=== PATIENT | female | born 1995 | race Caucasian/White ===

== ENCOUNTER 2022-08-17 12:44 | Outpatient (CLI) | payer BC, SELFPAY ==
--- NOTE | 2022-08-17 13:00 | CRLHL7_ITS ---
For Patients: As a result of the Century Cures Act, medical imaging exams and procedure reports are released immediately into your electronic medical record. You may view this report before your referring provider. If you have questions, please contact your health care provider. Indication: Sinusitis Technique: Performed without IV contrast Comparison: None available Findings: Frontal sinuses: Clear. Ethmoid sinuses: Clear. Maxillary sinuses: A tiny mucous retention cyst is present on the right measuring 3 millimeters. Clear left maxillary sinus. The maxillary sinus drainage pathways are patent on both sides. Sphenoid sinuses: Clear, including both sphenoethmoidal recesses. Nasal Cavity: Slight leftward deviation of the nasal septum. No nasal polyps. Normal turbinate mucosa. No TMJ abnormalities identified. The visualized portions of the orbits, intracranial contents and upper soft tissue neck are grossly negative. Incidental bone island within the posterior arch of C2 on the left. Impression: 1. Tiny right maxillary sinus mucous retention cyst. Remaining sinuses are clear. 2. Sinus drainage pathways are clear. Please note that all CT scans at this facility use dose modulation, iterative reconstruction, and/or weight-based dosing when appropriate to reduce radiation dose to as low as reasonably achievable. Dictated by Hernandez Poole MD @ 08/18/2022 7:02:52 AM (Electronically Signed)
== END 2022-08-17 12:45 | disposition home or self-care (01) ==
PROVIDERS: PCP Emergency Medicine; Visit Provider Otolaryngology
DX: J32.9 Chronic sinusitis, unspecified (principal); J32.0 Chronic maxillary sinusitis
CPT/HCPCS: 70486

== ENCOUNTER 2022-08-18 20:52 | Outpatient (CLI) | payer BC, SELFPAY ==
--- NOTE | 2022-08-31 08:47 | W.PM.SLEEP ---
Sleep Study Details Details Interpreting Provider: Isreal Date of Sleep Study: 08/18/22 Sleep Study Details: STUDY TYPE:? Hospital ? BMI:? 32.6 ORDERING PROVIDER:? Isreal INDICATION:? Concerns about sleep apnea ? SLEEP SUMMARY:? Total sleep time 444 minutes, efficiency 97, REM latency 303 Arousal index 8.6 RESPIRATORY SUMMARY:? Mean oxygen awake 94 asleep 94 minimum 87, 0.4 per minutes oxygen between 80 and 88% AHI 5.1, RDI 6.9, supine AHI 9.3, nonsupine AHI is 1.1 there was no supine REM sleep seen. PERIODIC LIMB MOVEMENTS OF SLEEP:? Periodically movements of sleep index 4.9, index with arousal 0.5 CARDIAC:? Mean heart rate awake 77, asleep 67. No arrhythmias noted IMPRESSION:? Supine position dependent mild obstructive sleep apnea RECOMMENDATION: Treatment options would include trial of avoidance of supine sleep, AutoSet CPAP at 4-17, airway expansion surgery, or dental appliance.
== END 2022-08-18 20:53 | disposition home or self-care (01) ==
LOC: SLEEP 20:53
PROVIDERS: PCP Emergency Medicine; Visit Provider Otolaryngology
DX: G47.33 Obstructive sleep apnea (adult) (pediatric) (principal)
CPT/HCPCS: 95810

== ENCOUNTER 2022-09-07 14:09 | Outpatient (CLI) | payer BC, SELFPAY ==
[2022-09-07 14:17] LABS: Hematocrit 37.8 % (33.0-51.0); Hemoglobin* 12.4 gm/dL (12.0-16.0); Mean Corpuscular HGB Conc 33 gm/dL (32-36); Mean Corpuscular Hemoglobin 30 pg (26-34); Mean Corpuscular Volume 90 fL (80-100); Platelet Count* 296 K/uL (140-440); Red Blood Count 4.21 m/uL (4.00-5.20); White Blood Count* 7.66 K/uL (4.50-11.00)
[2022-09-07 14:20] LABS: Slide Review Reflex No
[2022-09-07 22:18] LABS: Ferritin* 34.3 ng/mL (6.24-137.0)
== END 2022-09-07 14:10 | disposition home or self-care (01) ==
LOC: LKVREF 14:09
PROVIDERS: PCP Emergency Medicine; Visit Provider Otolaryngology
DX: G25.81 Restless legs syndrome (principal)
CPT/HCPCS: 82728; 85027

== ENCOUNTER 2023-12-08 16:29 | Outpatient (CLI) | payer MEDICARE, SELFPAY | END 2023-12-08 16:30 | disposition home or self-care (01) | PROVIDERS: PCP Emergency Medicine; Visit Provider Emergency Medicine | DX: E61.1 Iron deficiency (principal) | CPT/HCPCS: 82728 ==

== ENCOUNTER 2024-03-07 11:19 | Outpatient (CLI) | payer MEDICARE, SELFPAY | END 2024-03-07 11:20 | disposition home or self-care (01) | PROVIDERS: PCP Emergency Medicine; Visit Provider Emergency Medicine | DX: R53.83 Other fatigue (principal); D64.9 Anemia, unspecified; R11.0 Nausea | CPT/HCPCS: 80048; 84443 ==

== ENCOUNTER 2025-04-21 17:49 | Emergency (ER) | payer BC, SELFPAY ==
--- OUTSIDE RECORDS SUMMARY | 2025-04-21 17:51 | XMS_ITS | Clinical Summary ---
Author Organization [facility] Address [address] [place] [address]. [place] [address] Care Team Providers Care Play Leader Name Role Phone No Ref-Primary, Physician Primary Care Provider Allergies Active Allergy Reactions Criticality Noted Date Comments Hydrocodone-Acetaminoph en Other (See Comments),Swelling 05/28/2014 Other reaction(s): Unknown Vicodin Sulfa Antibiotics Hives 01/29/2024 As Child Medications levonorgestrel (MIRENA) 52 MG (20 mcg/day) IUD 52 mg by Intrauterine route. Active sertraline (ZOLOFT) 100 MG tabletIndicatio ns:Major Depressive Disorder Take 200 mg by mouth 2 times daily. 200 mg once daily Active buPROPion (WELLBUTRIN XL) 150 MG 24 hr tablet Take 150 mg by mouth every morning. Active spironolactone (ALDACTONE) 25 MG tablet Take 25 mg by mouth daily. 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[employer] Gender Identity Not on file Sexual Orientation Not on file Last Filed Vital Signs Vital Sign Reading Time Taken Comments Blood Pressure 111/76 01/29/2024 12:58 PM CDT Pulse 68 01/29/2024 12:58 PM CDT Temperature 37.3 C (99.1 F) 01/29/2024 12:58 PM CDT Respiratory Rate 16 01/29/2024 12:58 PM CDT Oxygen Saturation 97% 01/29/2024 12:58 PM CDT Inhaled Oxygen Concentration - - Weight 85.5 kg (188 lb 9.6 oz) 01/29/2024 12:58 PM CDT Height - - Body Mass Index - - Plan of Treatment Health Maintenance Due Date Last Done Comments ADVANCE CARE PLANNING 1993 ANNUAL REVIEW OF HM ORDERS 1993 YEARLY PREVENTIVE VISIT 1996 HIV SCREENING 2008 HEPATITIS C SCREENING 2011 HEPATITIS B VACCINE (1 of 3 - 19+ 3-dose series) 2012 PAP 2014 DTAP/TDAP/TD VACCINE (4 - Td or Tdap) 02/12/2019 02/12/2009, 02/23/2006, 09/16/1994 PHQ-2 (once per calendar year) 2024 COVID-19 VACCINE (2024-2 6 season) 2025 INFLUENZA VACCINE (#1) 2025 ZOSTER VACCINE (1 of 2) 2043 HPV VACCINE (No Doses Required) Completed MENINGITIS VACCINE Aged Out No longer eligible based on patient's age to complete this topic PNEUMOCOCCAL VACCINE: PEDIATRICS (0 to 5 YEARS) AND AT-RISK PATIENTS (6 to 49 YEARS) Aged Out No longer eligible b ased on patient's age to complete this topic Care Teams Play Leader Relationship Specialty Start Date End Date No Ref-Primary, Physician PCP - General 01/29/24
[2025-04-21 18:00] VITALS: BP 138/92; PULSE 88; RESP 20; TEMP 36.6; O2SAT 98
--- NOTE | 2025-04-21 18:09 | CRLHL7_ITS ---
For Patients: As a result of the Cures Act, medical imaging exams and procedure reports are released immediately into your electronic medical record. You may view this report before your referring provider. If you have questions, please contact your health care provider. INDICATION: Dog bite, mid hand pain COMPARISON: None. TECHNIQUE: Three views right hand. FINDINGS: No acute or healing fracture. Normal joint alignment. Joint spaces are normal. No focal bone lesions. Normal bone mineralization. Soft tissues are normal. Small soft tissue laceration over the dorsum of the right hand at the mid metacarpal level. No imbedded foreign body. No tracking subcutaneous or fascial gas. IMPRESSION: Right hand soft tissue injury. No embedded foreign body. No tracking subcutaneous emphysema. Dictated by Olimpia Mejía MD @ 04/21/2025 6:44:45 PM (Electronically Signed)
--- NOTE | 2025-04-21 18:24 | ED.ANIMALBIT ---
HPI - Animal Bite General Date Seen: 04/21/25 Chief Complaint: Animal Bite Stated Complaint: Dog Bite on right hand Time Seen by Provider: 04/21/25 17:52 Source: patient Mode of arrival: ambulatory Limitations: no limitations History of Present Illness HPI narrative: Patient is a 29-year-old female presenting to the emergency department after being bit on the right hand by her dog. She has a [place] husky mix. She states adduction finding and she tried to separate them when she got bit on the right hand. The vaccinations are up-to-date. She has pain to the middle portion of the hand. Has a small laceration on the palmar aspect the larger laceration on the dorsal aspect. No other injuries noted. Last tetanus was 2024. Related Data Home Medications ?Medication ?Instructions ?Recorded ?Confirmed ibuprofen 200 mg tablet 200 mg PO Q6H PRN 10/13/22 04/21/25 loratadine 10 mg tablet (Claritin) 10 mg PO QDAY 10/13/22 04/21/25 Previous Rx's ?Medication ?Instructions ?Recorded amoxicillin 875 mg tablet 875 mg PO BID #14 tabs 12/25/24 bupropion HCl 150 mg 24 hr tablet, 300 mg (2 x 150 mg) PO QDAY #180 12/25/24 extended release tabs ondansetron 8 mg disintegrating 8 mg PO Q12H PRN nausea and 12/25/24 tablet vomiting #20 tabs sertraline 100 mg tablet 200 mg (2 x 100 mg) PO QDAY #180 12/25/24 tabs spironolactone 50 mg tablet 50 mg PO QAM #90 tabs 12/25/24 Allergies Allergy/AdvReac Type Severity Reaction Status Date / Time Sulfa (Sulfonamide Allergy Unknown Rash Verified 04/21/25 17:57 Antibiotics) vicodin Allergy Unknown itchy, Uncoded 12/25/24 14:47 swollen eye Review of Systems Narrative: Pertinent systems reviewed and were negative unless stated in HPI PFSH PFSH Medical History Sinus congestion ?R09.81 - Nasal congestion (ICD-10) Nausea ?R11.0 - Nausea (ICD-10) Fatigue ?R53.83 - Other fatigue (ICD-10) Iron deficiency ?E61.1 - Iron deficiency (ICD-10) Anemia ?D64.9 - Anemia, unspecified (ICD-10) Depression with anxiety ?F41.8 - Other specified anxiety disorders (ICD-10) Migraine with aura ?G43.109 - Migraine with aura, not intractable, without status migrainosus (ICD-10) ONIEL (obstructive sleep apnea) ?G47.33 - Obstructive sleep apnea (adult) (pediatric) (ICD-10) Social History Narrative: rarely eats meat, 8 yr old 10 yrold daughter shared custody, no tobacco, rare etoh What is your current living situation?: I presently have a place to live Problems where you live: no known problems In the past 12 months, utilities in danger of being shut off: no In past 12 months, lack of transportation kept you from medical appts, meetings, work, or getting things needed for daily living: declined to answer In the past 12 mos, have been you worried that your food would run out before you had money to buy more?: declined to answer In the past 12 mos, the food you bought just didn't last and you didn't have money to buy more?: declined to answer Smoking Status: Never smoker How often do you have a drink containing alcohol: monthly or less AUDIT-C Alcohol total score: 1 Non-prescribed substance use: denies use How often does anyone, including family, friends and others, physically hurt you: never How often does anyone, including family, friends and others, insult or talk down to you: never How often does anyone, including family, friends and others, threaten you with harm: never How often does anyone, including family, friends and others, scream or curse at you: never Exam Narrative: Exam Narrative: Const: Well-nourished, Well-developed, in mild distress Eyes: PERRL, no conjunctival injection, and symmetrical lids HENT: Atraumatic external nose and ears. Moist mucous membranes. MSK:Extremities w/o deformity, Normal Active ROM, tenderness noted to the and on both the palmar and dorsal aspect in the middle portion of the hand. Skin: Warm, Dry. 2.5 cm laceration the palmar aspect of the hand with well approximated wound edges. 1.5 cm laceration on the back of the hand with gaping wound edges. Neuro: Normal Muscle tone, No focal neurological deficits. Psych: Awake, Alert, & Oriented x3. Appropriate mood and affect. Const: Vital Signs, click to edit/add: Vital Signs - 24 hr 04/21/25 18:00 Temperature 97.8 F Pulse Rate [Pulse Oximeter] 88 Respiratory Rate 20 Blood Pressure [Ri ght Upper Arm] 138/92 H Pulse Oximetry 98 Oxygen Delivery Me thod Room Air Course Vital Signs Vital signs: Initial Vital Signs Temperature 97.8 F 04/21/25 18:00 Temperature Source Temporal Artery Scan 04/21/25 18:00 Pulse Rate 88 04/21/25 18:00 Respiratory Rate 20 04/21/25 18:00 Blood Pressure 138/92 H 04/21/25 18:00 Blood Pressure Mean 107 H 04/21/25 18:00 Pulse Oximetry 98 04/21/25 18:00 Oxygen Delivery Method Room Air 04/21/25 18:00 Vital Signs Temperature 97.8 F 04/21/25 18:00 Pulse Rate 88 04/21/25 18:00 Respiratory Rate 20 04/21/25 18:00 Blood Pressure 138/92 H 04/21/25 18:00 Pulse Oximetry 98 04/21/25 18:00 Oxygen Delivery Method Room Air 04/21/25 18:00 Temperature 97.8 F 04/21/25 18:00 Pulse Rate 88 04/21/25 18:00 Respiratory Rate 20 04/21/25 18:00 Blood Pressure 138/92 H 04/21/25 18:00 Pulse Oximetry 98 04/21/25 18:00 Oxygen Delivery Method Room Air 04/21/25 18:00 Medications Administered Medications: Generic Name Dose Route Start Last Admin Trade Name Freq PRN Reason Stop Dose Admin Lidocaine/Epinephrine/Tetracaine 3 ml 04/21/25 18:36 04/21/25 18:43 Lidocaine/Epinep/Tetracaine 3 Ml Gel..Ml. TOPICAL 04/21/25 18:37 3 ml ONCE ONE Administration MDM - Animal Bite MDM Narrative Medical decision making narrative: Patient is a 29-year-old female presenting to the emergency department for dog bite. Dog is up-to-date on vaccinations. Considering the size of the dog in the amount of pain she has and I will do an x-ray of the hand to make sure there is no foreign bodies or fractures. X-ray interpreted by myself and the radiologist showed no acute concerning abnormalities. No signs of fractures. No imbedded foreign bodies. Due to the amount that the wound is gaping I did place 1 suture with loose approximation of this scan. Wound was cleaned extensively. No tendon injury or muscular injury noted. Neurovascular intact. Do not want to close it up completely as it is an animal bite. Numbing was done using let rabies vaccine is not indicated at this time. Her hand injury is secondary to muscle strain. Will start her on Augmentin. Prescribed via instymeds Diagnosis: Dog bite , hand strain Imaging Data Right hand x-ray: Attestation: I have reviewed the pertinent imaging results. Radiologist's impression: Right hand soft tissue injury. No embedded foreign body. No tracking subcutaneous emphysema. Dictated by Olimpia Mejía MD @ 04/21/2025 6:44:45 PM Discharge Plan Discharge Clinical Impression: Dog bite Qualifiers: Encounter type: initial encounter Qualified Code(s): W54.0XXA - Bitten by dog, initial encounter Patient Disposition: Home, Self-Care Condition: Stable Instructions: Animal Bite (ED) Additional Instructions: Follow-up with your primary care provider or urgent care in the next 7 days to have the 1 sutures removed. For next 6 months, once sutures are removed, whenever you go outside put a dab of sunscreen over the laceration site to improve scar appearance. Topical antibiotics are not necessary at this time. Patient can shower but do not submerge the laceration until sutures are removed. Antibiotics as directed. Can cover the wound. And bites can get infected fast in bad. You likely see some redness around the area tomorrow but if the redness starts expanding or starts running up the arm please return for re-evaluation. Prescriptions: No Action ibuprofen 200 mg tablet 200 mg PO Q6H PRN loratadine [Claritin] 10 mg tablet 10 mg PO QDAY bupropion HCl 150 mg tablet extended release 24 hr 300 mg PO QDAY Qty: 180 3RF sertraline 100 mg tablet 200 mg PO QDAY Qty: 180 3RF spironolactone 50 mg tablet 50 mg PO QAM Qty: 90 3RF ondansetron 8 mg tablet,disintegrating 8 mg PO Q12H PRN (Reason: nausea and vomiting) Qty: 20 0RF Rx Instructions: do not fill 4mg amoxicillin 875 mg tablet 875 mg PO BID Qty: 14 0RF Stand Alone Forms: [employer] Info Instructions
[2025-04-21] MEDS: LIDOCAINE/EPINEP/TETRACAINE 3 ML GEL..ML. TOPICAL (18:43)
== END 2025-04-21 20:26 | disposition home or self-care (01) ==
PROVIDERS: Emergency Provider Student in an Organized Health Care Education/Training Program
DX: S61.451A Open bite of right hand, initial encounter (principal); S61.411A Laceration without foreign body of right hand, initial encounter; W54.0XXA Bitten by dog, initial encounter
CPT/HCPCS: 12001; 73130; 99283; 99284